=== PATIENT | female | born 1960 | race Caucasian/White ===

== ENCOUNTER 2024-02-08 11:18 | Outpatient (CLI) | payer MEDICARE, OTHER, SELFPAY ==
--- NOTE | 2024-02-08 11:23 | MR_ITS ---
WS: [id number] MRI CERVICAL SPINE NONCONTRAST HISTORY: History of cervical fusion. Increasing neck pain and limited range of motion. COMPARISON: None available. Technique: Multiplanar, multisequence noncontrast imaging of the cervical spine. Straightening of the normal cervical lordosis. Status post cervical fusion from C5-C7. Interbody spac ers at C5-6 and C6-7. Cystic change within the central cord extends over a length of 4.2 mm. Cystic changes at the level of C6 vertebral body. There is no cord atrophy or enlargement. Craniocervical junction, C1 and C2 relationship, odontoid process and soft tissues are normal. C2-C3: Normal. C3-C4: Diffuse disc bulging with osteophytic ridging and a small central disc protrusion. Small yunior inal osteophytes. Mild RIGHT foraminal stenosis and facet arthritis. C4-C5: Mild diffuse annular disc bulging. Bilateral facet joint arthropathy with fluid surrounding th e facet joints. There is a small amount of edema in the articular facets on the LEFT. C5-C6: Diffuse osteophytic ridging encroaching upon the ventral thecal sac. Slight effacement of CSF and slight deformity of the ventral cervical cord. Osteophytic ridging extends into the foramina. Mil d central with moderate bilateral foraminal stenosis. Marrow edema in the LEFT articular facets. C6-C7: Mild LEFT foraminal narrowing predominately due to osteophyte disease. C7-T1: Annular disc bulge with a central disc protrusion. Mild facet arthritis. Mild effacement of ve ntral CSF. Mild bilateral foraminal stenosis. MR/MR cervical spin wo con* [id number] IMPRESSION: 1. Cyst in the central cervical cord at the C6 level measures 4.2 mm. Favor th is is probably a syrinx. Recommend follow-up MRI cervical spine with contrast t o exclude neoplasm or mass. 2. Prior cervical fusion with interbody spacers from C5-C7. 3. C3-4: Small central disc protrusion with RIGHT foraminal stenosis. 4. C5-6: Osteophytic ridging and disc disease resulting in mild central with b ilateral foraminal stenosis. 5. C6-7: Mild LEFT foraminal narrowing due to osteophyte. 6. C7-T1: Mild foraminal stenosis. Small central disc protrusion. 7. Facet joint synovitis most significant at the C4-5 level and greatest on th e LEFT. Additional mild facet arthritis on the RIGHT at C3-4. Marrow edema in t he LEFT articular facets C4 and C5.
== END 2024-02-08 11:19 | disposition home or self-care (01) ==
LOC: RAD 11:20
PROVIDERS: Visit Provider Registered Nurse
DX: M50.30 Other cervical disc degeneration, unspecified cervical region (principal); M54.12 Radiculopathy, cervical region; Z98.890 Other specified postprocedural states; M43.22 Fusion of spine, cervical region; M50.321 Other cervical disc degeneration at C4-C5 level; M25.78 Osteophyte, vertebrae; M47.892 Other spondylosis, cervical region; S14.126A Central cord syndrome at C6 level of cervical spinal cord, initial encounter; M46.92 Unspecified inflammatory spondylopathy, cervical region
CPT/HCPCS: 72141

== ENCOUNTER → 2024-08-18 12:47 | Outpatient (BNVA) | payer MEDICARE, OTHER, SELFPAY | PROVIDERS: Visit Provider Nurse Practitioner Family | DX: L70.0 Acne vulgaris (principal); L57.8 Other skin changes due to chronic exposure to nonionizing radiation; L81.4 Other melanin hyperpigmentation; D22.5 Melanocytic nevi of trunk; L81.3 Cafe au lait spots; Z80.8 Family history of malignant neoplasm of other organs or systems; D48.5 Neoplasm of uncertain behavior of skin; L57.0 Actinic keratosis; L56.8 Other specified acute skin changes due to ultraviolet radiation | CPT/HCPCS: 11102; 17000; 99204 ==

== ENCOUNTER → 2025-02-02 08:58 | Outpatient (BNVA) | payer MEDICARE, OTHER, SELFPAY | PROVIDERS: Visit Provider Nurse Practitioner Family | DX: L57.8 Other skin changes due to chronic exposure to nonionizing radiation (principal); L81.4 Other melanin hyperpigmentation; D22.5 Melanocytic nevi of trunk; L81.3 Cafe au lait spots; Z80.8 Family history of malignant neoplasm of other organs or systems; L57.0 Actinic keratosis; L56.8 Other specified acute skin changes due to ultraviolet radiation | CPT/HCPCS: 17000; 99213 ==